=== PATIENT | male | born 1995 | race Caucasian/White ===

== ENCOUNTER 2020-10-17 14:22 | Emergency (ER) | payer MEDICAID, SELFPAY ==
[2020-10-17 15:17] VITALS: BP 156/93; PULSE 78; RESP 16; TEMP 36.4; O2SAT 97; BMI 43.3
--- NOTE | 2020-10-17 17:52 | ED_ITS ---
HPI - General Adult General Chief complaint: Allergic Reaction Stated complaint: ALLERGY REACTION Time Seen by Provider: 10/17/20 17:36 Source: patient Mode of arrival: ambulatory Limitations: no limitations History of Present Illness HPI narrative: Patient presents to the ED for painful rash on left upper extremity. Patient states thinks this caused by Biofreeze gel. Patient denies any rash elsewhere, chest pain, shortness of breath, or swelling of lips. Patient denies any fever, chills, or shortness of breath. Related Data Previous Rx's Medication Instructions Recorded naproxen 500 mg PO BID PRN #20 tab 10/17/20 valacyclovir [Valtrex] 1,000 mg PO TID #21 tab 10/17/20 Allergies Allergy/AdvReac Type Severity Reaction Status Date / Time Penicillins [PENICILLINS] Allergy Intermediate RASH Verified 10/17/20 17:27 amoxicillin [AMOXICILLIN] Allergy Unknown HIVES Verified 10/17/20 17:27 Review of Systems Review of Systems: Yes all other systems are reviewed and are negative Constitutional: Constitutional: Reports as per HPI and Reports no additional constitutional complaints Eyes: Eyes: Reports as per HPI and Reports no additional eye complaints ENT: Reports system reviewed and no additional complaints, except as documented and Reports as per HPI Cardiovascular: Cardiovascular: Reports as per HPI and Reports no additional cardiovascular complaints Respiratory: Respiratory: Reports as per HPI and Reports no additional respiratory complaints Gastrointestinal: Gastrointestinal: Reports as per HPI and Reports no additional gastrointestinal complaints Genitourinary: Genitourinary: Reports no additional male genitourinary compl aints and Reports as per HPI Musculoskeletal: Musculoskeletal: Reports no additional musculoskeletal complaints and Reports as per HPI Comments: Left upper extremity vesicular rash. Neurologic: Reports system reviewed and no additional complaints, except as documented and Reports as per HPI Psychiatric: Psychiatric: Reports no additional psychiatric complaints and Reports as per HPI [facility] Social History Social History Advance Directives: No Advance Directives Information Provided: No Physical Exam Vital Signs: Vital Signs: Last Vital Signs Temp 97.6 F 10/17/20 15:17 Pulse 78 10/17/20 15:17 Resp 16 10/17/20 15:17 BP 156/93 H 10/17/20 15:17 Pulse Ox 97 10/17/20 15:17 Body Mass Index 43.3 Const: General: cooperative, healthy appearing, comfortable, no acute distress, well developed, alert, awake and Physically active Orientation/consciousness: patient oriented x3 HENMT: Head: Yes normal to inspection and Yes No palpable skull fracture present Eyes: General: appearance normal, both eyes and all related structures Neck: Neck: Yes normal visual inspection, Yes full ROM, Yes no lymphadenopathy, Yes no meningeal signs, Yes trachea midline, Yes supple and No tender Chest: Chest palpation & inspection: normal inspection of the chest and normal palpation of entire chest wall Resp: Effort & Inspection: normal respiratory effort and able to speak in complete sentences Cardio: Jugular venous distension: no JVD Heart sounds: S1 normal heart sound present and S2 normal heart sound present GI: Inspection: Yes normal to inspection and No abdominal wall ecchymosis Palpation (GI): Soft to palpation, not firm, nontender, no guarding and not rigid : General: No CVA tenderness Back/Spine/Pelvis: Back: no CVA tenderness, No CVA tenderness and No back tenderness Skin: General skin exam: no rashes or lesions noted and elasticity normal Neuro: General: patient oriented x3, gait normal, no meningeal signs and CN's II-XI intact bilaterally Cranial nerves: Yes CN's II-XII intact bilaterally Extrem: Other: Left upper extremity: Positive for vesicular rash on hands palm and volar and on forearm. General: Yes normal to inspection and Yes full ROM Psych: Appearance: grossly normal, well kempt and not disheveled Course Course Course Narrative: Rash does not seem contact dermatitis or Uticaria. Rash appears some kind of vesicular possibly HSV/shingles. Dr. Zheng also evaluated patient and recommends HSV culture and discharge Valtrex. Reevaluation(s) Reevaluation #1: Patient discharged with Valtrex. Patient informed to follow-up PCP Medical Decision Making [facility] Narrative Medical decision making narrative: Rash Discharge Plan Discharge Clinical Impression: Vesicular eruption of palms and soles, Vesicular eruption of skin Patient Disposition: Home, Self-Care Instructions: Acute Rash (ED) Additional Instructions: Return to the ED for worsening of rash, swelling of lips, chest pain, shortness of breath, developed a rash on face, eye pain, blurry vision, or any other concerning symptoms. HSV Swab was sent. Prescriptions: New valacyclovir [Valtrex] 1 gram tablet 1,000 mg PO TID Qty: 21 RF: 0 naproxen 500 mg tablet 500 mg PO BID PRN (Reason: pain) Qty: 20 RF: 0 Referrals: [facility] [Primary Care Provider] - 2 days (Fascicular rash on left upper extremity. HSV culture pending) Stand Alone Forms: Work/School Release Interventions: ED Discharge Assessment Last Done: 10/17/20 18:23 Discharge Date/Time: 10/17/20 18:25 Print Language: Divehi
== END 2020-10-17 18:25 | disposition home or self-care (01) ==
PROVIDERS: Physician Assistant; Emergency Provider Internal Medicine
DX: R23.8 Other skin changes (principal)
CPT/HCPCS: 87255; 99283; 99284

== ENCOUNTER 2020-10-31 17:27 | Emergency (ER) | payer OTHER, MEDICAID, SELFPAY ==
--- NOTE | ~2020-10-31 | XR_ITS ---
EXAMINATION: LEFT HAND, LEFT ELBOW, LEFT SHOULDER AND CERVICAL SPINE. CLINICAL INFORMATION: Lifting injury resulting in shoulder pain, hand pain elbow pain COMPARISON: And neck pain. TECHNIQUE: Left hand 3 views. Left elbow 3 views. Left shoulder 4 views. Cervical spine 5 views. FINDINGS: Left elbow: There is no visible acute fracture, dislocation or subluxation. No joint effusion seen. The soft tissues are normal. Left shoulder: There is no visible acute fracture, dislocation or soft tissue abnormality. Cervical spine: There is mild straightening of cervical lordosis. The vertebral heights, alignment and disc heights are normal. No visible acute fracture, dislocation or subluxation seen. The prevertebral soft tissues are normal. Left hand: There is no visible acute fracture, dislocation or subluxation. The soft tissues are normal. XR/XR cervical spine 2V IMPRESSION: Unremarkable left elbow and left shoulder exam. Unremarkable left hand exam. Reversal of cervical lordosis likely spasm. No visible acute fracture.
--- NOTE | ~2020-10-31 | XR_ITS ---
EXAMINATION: LEFT HAND, LEFT ELBOW, LEFT SHOULDER AND CERVICAL SPINE. CLINICAL INFORMATION: Lifting injury resulting in shoulder pain, hand pain elbow pain COMPARISON: And neck pain. TECHNIQUE: Left hand 3 views. Left elbow 3 views. Left shoulder 4 views. Cervical spine 5 views. FINDINGS: Left elbow: There is no visible acute fracture, dislocation or subluxation. No joint effusion seen. The soft tissues are normal. Left shoulder: There is no visible acute fracture, dislocation or soft tissue abnormality. Cervical spine: There is mild straightening of cervical lordosis. The vertebral heights, alignment and disc heights are normal. No visible acute fracture, dislocation or subluxation seen. The prevertebral soft tissues are normal. Left hand: There is no visible acute fracture, dislocation or subluxation. The soft tissues are normal. XR/XR shoulder LT min 2V IMPRESSION: Unremarkable left elbow and left shoulder exam. Unremarkable left hand exam. Reversal of cervical lordosis likely spasm. No visible acute fracture.
--- NOTE | ~2020-10-31 | XR_ITS ---
EXAMINATION: LEFT HAND, LEFT ELBOW, LEFT SHOULDER AND CERVICAL SPINE. CLINICAL INFORMATION: Lifting injury resulting in shoulder pain, hand pain elbow pain COMPARISON: And neck pain. TECHNIQUE: Left hand 3 views. Left elbow 3 views. Left shoulder 4 views. Cervical spine 5 views. FINDINGS: Left elbow: There is no visible acute fracture, dislocation or subluxation. No joint effusion seen. The soft tissues are normal. Left shoulder: There is no visible acute fracture, dislocation or soft tissue abnormality. Cervical spine: There is mild straightening of cervical lordosis. The vertebral heights, alignment and disc heights are normal. No visible acute fracture, dislocation or subluxation seen. The prevertebral soft tissues are normal. Left hand: There is no visible acute fracture, dislocation or subluxation. The soft tissues are normal. XR/XR elbow LT 2V IMPRESSION: Unremarkable left elbow and left shoulder exam. Unremarkable left hand exam. Reversal of cervical lordosis likely spasm. No visible acute fracture.
--- NOTE | ~2020-10-31 | XR_ITS ---
EXAMINATION: LEFT HAND, LEFT ELBOW, LEFT SHOULDER AND CERVICAL SPINE. CLINICAL INFORMATION: Lifting injury resulting in shoulder pain, hand pain elbow pain COMPARISON: And neck pain. TECHNIQUE: Left hand 3 views. Left elbow 3 views. Left shoulder 4 views. Cervical spine 5 views. FINDINGS: Left elbow: There is no visible acute fracture, dislocation or subluxation. No joint effusion seen. The soft tissues are normal. Left shoulder: There is no visible acute fracture, dislocation or soft tissue abnormality. Cervical spine: There is mild straightening of cervical lordosis. The vertebral heights, alignment and disc heights are normal. No visible acute fracture, dislocation or subluxation seen. The prevertebral soft tissues are normal. Left hand: There is no visible acute fracture, dislocation or subluxation. The soft tissues are normal. XR/XR hand LT 2V IMPRESSION: Unremarkable left elbow and left shoulder exam. Unremarkable left hand exam. Reversal of cervical lordosis likely spasm. No visible acute fracture.
[2020-10-31 17:35] VITALS: BP 142/97; PULSE 80; RESP 18; TEMP 37.1; O2SAT 97; BMI 42.5
--- NOTE | 2020-10-31 18:48 | ED.EXTPRO ---
HPI - Extremity Problem General Chief complaint: Extremity Injury, Upper Stated complaint: arm pain Time Seen by Provider: 10/31/20 20:34 Source: patient Mode of arrival: ambulatory Limitations: no limitations History of Present Illness HPI Narrative: 24-year-old male presents with injuries to the left upper extremity that occurred 2 weeks ago. States that he is having a difficult time lifting his arm, and we start to work that the pain starts in his hand elbow and shoulder. He does not describe loss of sensation or strength but states that the pain is so severe that he cannot work. MD Complaint: extremity pain Onset (ago): week(s) (To) Pain Consistency: intermittent Location: left and upper extremity Severity scale (1-10): 8 Quality: aching Relieving factors: rest Exacerbating factors: range of motion and exertion Associated symptoms: denies other symptoms Related Data Previous Rx's Medication Instructions Recorded naproxen 500 mg PO BID PRN #20 tab 10/17/20 valacyclovir [Valtrex] 1,000 mg PO TID #21 tab 10/17/20 cyclobenzaprine 10 mg PO TID PRN #14 tab 10/31/20 Allergies Allergy/AdvReac Type Severity Reaction Status Date / Time Penicillins [PENICILLINS] Allergy Intermediate RASH Verified 10/17/20 17:27 amoxicillin [AMOXICILLIN] Allergy Unknown HIVES Verified 10/17/20 17:27 Review of Systems Review of Systems: Constitutional: No Fever, No Chills ENT/Mouth: No Ear Pain, No Hoarseness, No sore throat Eyes: No Eye Pain, No Swelling, No Redness, No Foreign Body Cardiovascular: No Chest Pain, No SOB Respiratory: No Cough, No Dyspnea Gastrointestinal: No Nausea, No Vomiting, No Diarrhea, No abdominal Pain Genitourinary: No Dysuria, No Hematuria Musculoskeletal: positive left arm pain, No Myalgias, No Joint Swelling Skin: No Skin lacerations, No rash Neuro: No Weakness, No Numbness, No Paresthesias, No Loss of Consciousness, No Dizziness, No Headache Psych: No Anxiety/Panic, No Depression Heme/Lymph: no easy bruising, no Lymphadenopathy Endocrine: No Polyuria, No Polydipsia Yes all other systems are reviewed and are negative [facility] Past Medical History Attestation statement: The following information was validated with the patient. Source: old records reviewed Social History Social History Advance Directives: No Advance Directives Information Provided: Yes Physical Exam Vital Signs: Vital Signs: Last Vital Signs Temp 98.7 F 10/31/20 17:35 Pulse 75 10/31/20 19:55 Resp 17 10/31/20 19:55 BP 132/72 10/31/20 19:55 Pulse Ox 98 10/31/20 19:55 Body Mass Index 42.5 Appearance: Alert. Oriented X3. No acute distress. Eyes: Pupils equal, round and reactive to light. ENT: Pharynx normal. Neck: Normal inspection. Neck supple. CVS: Normal heart rate and rhythm. Pulses normal. Respiratory: No respiratory distress. Breath sounds normal. Abdomen: Soft and nontender. Skin: Skin warm and dry. Normal skin color. Normal skin turgor. Extremities: Full range of motion to all extremities, no crepitus noted, tenderness noted to the left acromion process over to the left scapula. No vertebral tenderness, no vertebral step-offs. Neuro: No motor deficit. No sensory deficit. Course Course Course Narrative: 24-year-old male presents with symptoms sustained from an injury while he was at work 2 weeks ago. States that he was treated for left arm injury after a lifting accident. States that when he moves his arm it exacerbates the pain and he is unable to work. The pain starts in his hand radiates up to his elbow and then to his shoulder. Physical exam is normal, he does have a decreased range of motion with left shoulder abduction, however he was able to walk in to this department without any difficulty and was using his phone with his left hand prior to my assessment. Will order x-rays of cervical spine, shoulder, elbow and wrist. He stated that when he had his initial injury that there was no imaging taken. X-rays are negative for acute findings requiring emergent intervention. There is some suggestion of muscle spasms, will give patient cyclobenzaprine. Was strongly advised to follow-up with [facility] as well as orthopedics. MDM - Extremity (Nontraumatic) MDM Narrative Medical decision making narrative: Fracture, dislocation, musculoskeletal strain Medical Records Attestation: I reviewed the patient's medical records. Imaging Data Cervical spine, left shoulder, left elbow, left hand x-rays: Attestation: I personally reviewed and interpreted this imaging study as follows: Radiologist's impression: IMPRESSION: Unremarkable left elbow and left shoulder exam. Unremarkable left hand exam. Reversal of cervical lordosis likely spasm. No visible acute fracture. Discharge Plan Discharge Clinical Impression: Arm pain Qualifiers: Laterality: left Qualified Code(s): M79.602 - Pain in left arm Patient Disposition: Home, Self-Care Instructions: Arm Pain (ED) Additional Instructions: You were evaluated for arm pain after lifting injury at work. Please follow up with [facility] in 3 days. X-rays of the cervical spine, left shoulder, left elbow, and left hand are negative for fractures or dislocation. You do have some muscle spasms. I prescribed cyclobenzaprine, which is a muscle relaxer. Do not drive or operate machinery while taking this medication as this medication may delay reaction time, increased risk for falls, and cause drowsiness. If pain persists you must follow-up with orthopedics for further evaluation. Thank you for choosing this emergency department for evaluation. Please follow-up with primary care physician as needed. Return to the emergency department for any new, concerning, or worsening symptoms. Prescriptions: New cyclobenzaprine 10 mg tablet 10 mg PO TID PRN (Reason: muscle spasm) Qty: 14 RF: 0 No Action valacyclovir [Valtrex] 1 gram tablet 1,000 mg PO TID Qty: 21 RF: 0 naproxen 500 mg tablet 500 mg PO BID PRN (Reason: pain) Qty: 20 RF: 0 Referrals: [facility] [Provider Group] - 2 days (Please follow-up for work related injury with left arm.) Timbo Bustos MD [Physician] - 2 days (Left arm pain after work-related injury) Interventions: ED Discharge Assessment Last Done: 10/31/20 21:12 Discharge Date/Time: 10/31/20 21:13
[2020-10-31] MEDS: Cyclobenzaprine HCl 10 MG TABLET PO (19:53)
[2020-10-31 19:55] VITALS: BP 132/72; PULSE 75; RESP 17; O2SAT 98
== END 2020-10-31 21:13 | disposition home or self-care (01) ==
PROVIDERS: Emergency Provider Internal Medicine
DX: M79.602 Pain in left arm (principal)
CPT/HCPCS: 72040; 73030; 73070; 73120; 99283; 99284

== ENCOUNTER 2021-01-29 17:34 | Emergency (ER) | payer MEDICAID, SELFPAY ==
--- NOTE | ~2021-01-29 | XR_ITS ---
EXAMINATION: PORTABLE CHEST 1 VIEW CLINICAL INFORMATION: productive cough, fever . COMPARISON: 08/11/2019. TECHNIQUE: Portable frontal view of the chest was obtained. FINDINGS: The lungs are well expanded. No focal infiltrate, effusion, edema, or pneumothorax. Cardiac and mediastinal silhouettes are within normal limits for technique. No acute bony abnormality seen. XR/XR chest 1V IMPRESSION: No evidence of acute disease.
[2021-01-29 18:00] VITALS: BP 134/75; PULSE 95; RESP 16; TEMP 37; O2SAT 97; BMI 41.0
--- NOTE | 2021-01-29 19:02 | ED.URI ---
HPI - URI/Sore Throat General Chief Complaint: Upper Respiratory Symptoms Stated Complaint: covid symptoms Time Seen by Provider: 01/29/21 19:02 Source: patient Mode of arrival: ambulatory Limitations: no limitations History of Present Illness HPI Narrative: 25 y/o male with no significant medical history presents to the ER with 4 days of productive cough, nasal congestion, and headaches. He is fully vaccinated against COVID-19. He reports cough is improved but he is still bringing up some green phlegm and blowing green mucus out of his nose. His sinuses feels clogged. Subjective fevers at home, no chills. No N/V/D. No known sick contacts. MD elicited complaint: cough, nasal congestion and other (headache) Onset (ago): day(s) (4) Consistency: constant Severity: moderate Description of mucous: green Able to tolerate fluids by mouth: Yes Exacerbating factors: nothing Relieving factors: nothing Associated symptoms: fever, headache, nasal congestion and cough Treatments prior to arrival: none Related Data Previous Rx's Medication Instructions Recorded naproxen 500 mg tablet 500 mg PO BID PRN #20 tab 10/17/20 valacyclovir 1 gram tablet 1,000 mg PO TID #21 tab 10/17/20 (Valtrex) cyclobenzaprine 10 mg tablet 10 mg PO TID PRN #14 tab 10/31/20 azithromycin 250 mg tablet See Rx Instructions .ROUTE 01/29/21 (Zithromax Z-Chad) .COMPLEX #6 tab Allergies Allergy/AdvReac Type Severity Reaction Status Date / Time Penicillins [PENICILLINS] Allergy Intermediate RASH Verified 10/17/20 17:27 amoxicillin [AMOXICILLIN] Allergy Unknown HIVES Verified 10/17/20 17:27 Review of Systems Review of Systems: Constitutional: + Fever, No Chills ENT/Mouth: No sore throat, + Rhinorrhea, No Swallowing Difficulty Cardiovascular: No Chest Pain, No SOB Respiratory: + Cough, + Sputum, No wheezing or dyspnea Gastrointestinal: No Nausea, No Vomiting, No Diarrhea, No abdominal Pain Genitourinary: No Dysuria, No Urinary Frequency, No Hematuria Musculoskeletal: No joint pain, No Myalgias Skin: No Skin Lesions, No rash Neuro: No Weakness, No Numbness, No Dizziness, + Headache Psych: No Anxiety/Panic, No Depression Heme/Lymph: No Bruising, No Lymphadenopathy PMFSH Social History Social History Advance Directives: No Advance Directives Information Provided: No Physical Exam Vital Signs: Vital Signs: Last Vital Signs Temp 98.6 F 01/29/21 18:00 Pulse 95 01/29/21 18:00 Resp 16 01/29/21 18:00 BP 134/75 01/29/21 18:00 Pulse Ox 97 01/29/21 18:00 Body Mass Index 41.0 Appearance: Alert. Oriented X3. No acute distress. Eyes: Pupils equal, round and reactive to light. ENT: Pharynx normal. Nasal turbinates with erythema and clear discharge Neck: Normal inspection. Neck supple. CVS: Normal heart rate and rhythm. Pulses normal. Respiratory: No respiratory distress. Breath sounds normal. Congested cough Skin: Skin warm and dry. Normal skin color. Normal skin turgor. No rashes. Extremities: No lower extremity edema. Neuro: Oriented X 3. Nonfocal Course Course Course Narrative: 25 y/o male presenting with productive cough, headache and nasal congestion. VS stable. Appears non-toxic. CXR and COVID are negative. Will treat for acute bronchitis. Stable for d/c home with supportive care and outpatient follow up. MDM - URI/Sore Throat Lab Data Labs: Lab Results 01/29/21 01/29/21 Range/Units 18:08 19:33 COVID-19 ([facility]) Cancelled Negative COVID-19 Clin Com Cancelled See Note Critical Care Time Critical Care Time Critical Care Time: No Discharge Plan Discharge Clinical Impression: Bronchitis Patient Disposition: Home, Self-Care Instructions: Acute Bronchitis (ED) Additional Instructions: You were negative for COVID Your chest x-ray was clear Take the prescribed antibiotic as directed You were found to be COVID-19 POSITIVE today. Rest. Drink plenty of fluids. Do not go out in public for the next 10 days. Take over the counter cold/flu medications as needed for your symptoms. Take Tylenol and/or Motrin as needed for fevers and body aches. Follow up with your doctor this week. If you develop new or worsening symptoms call 911 or come back to the ER for further evaluation. Prescriptions: New azithromycin [Zithromax Z-Chad] 250 mg tablet See Rx Instructions .ROUTE .COMPLEX Qty: 6 RF: 0 No Action valacyclovir [Valtrex] 1 gram tablet 1,000 mg PO TID Qty: 21 RF: 0 naproxen 500 mg tablet 500 mg PO BID PRN (Reason: pain) Qty: 20 RF: 0 cyclobenzaprine 10 mg tablet 10 mg PO TID PRN (Reason: muscle spasm) Qty: 14 RF: 0 Stand Alone Forms: Work/School Release Interventions: ED Discharge Assessment Last Done: 01/29/21 20:13 Discharge Date/Time: 01/29/21 20:13
[2021-01-29 19:52] LABS: COVID-19 Test Negative (Negative); IDNOW Serial# 55D5AD1C
== END 2021-01-29 20:13 | disposition home or self-care (01) ==
PROVIDERS: Emergency Provider Internal Medicine
DX: J20.9 Acute bronchitis, unspecified (principal); Z20.822 Contact with and (suspected) exposure to COVID-19
CPT/HCPCS: 36415; 71045; 87635; 99283

== ENCOUNTER 2021-03-30 20:50 | Emergency (ER) | payer OTHER, MEDICAID, SELFPAY ==
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
[2021-03-30 21:08] VITALS: BP 140/96; PULSE 87; RESP 20; TEMP 36.8; O2SAT 98; BMI 46.0
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
[2021-03-30] MEDS: Ibuprofen 600 MG TABLET PO (22:41)
[2021-03-30] MEDS: Cyclobenzaprine HCl 10 MG TABLET PO (22:41)
== END 2021-03-30 23:32 | disposition home or self-care (01) ==
PROVIDERS: Emergency Provider Internal Medicine
DX: S16.1XXA Strain of muscle, fascia and tendon at neck level, initial encounter (principal); V43.62XA Car passenger injured in collision with other type car in traffic accident, initial encounter; Y93.9 Activity, unspecified; Y92.410 Unspecified street and highway as the place of occurrence of the external cause; Y99.9 Unspecified external cause status
CPT/HCPCS: 72040; 99283; 99284

== ENCOUNTER 2021-06-12 13:22 | Outpatient (REF) | payer MEDICAID, SELFPAY ==
[2021-06-12 14:22] LABS: COVID-19 Test Positive (Negative)
== END 2021-06-12 13:23 | disposition home or self-care (01) ==
LOC: HO.LAB 13:22
PROVIDERS: Visit Provider Internal Medicine
DX: Z20.822 Contact with and (suspected) exposure to COVID-19 (principal)
CPT/HCPCS: 87635; C9803

== ENCOUNTER 2021-06-21 13:36 | Outpatient (REF) | payer MEDICAID, SELFPAY ==
[2021-06-21 14:09] LABS: Binax Internal Control QC Valid; Binax Now Covid-19 Ag Negative (Negative)
== END 2021-06-21 13:37 | disposition home or self-care (01) ==
LOC: HO.LAB 13:36
PROVIDERS: Visit Provider Internal Medicine
DX: Z20.822 Contact with and (suspected) exposure to COVID-19 (principal)
CPT/HCPCS: C9803

== ENCOUNTER 2021-11-14 14:38 | Outpatient (REF) | payer MEDICAID, SELFPAY ==
--- NOTE | ~2021-11-14 | MM_ITS ---
EXAMINATION: MM DIAGNOSTIC DIGITAL BREAST TOMOSYNTHESIS, BILATERAL US DIAGNOSTIC ULTRASOUND BREAST, BILATERAL CLINICAL INFORMATION: 25-year-old male with bilateral retroareolar pain greater on left approximately 6 months. No prior breast imaging. COMPARISON: None (current study represents initial baseline exam). TECHNIQUE: Digital breast tomosynthesis is performed in both the craniocaudal and mediolateral oblique views along with computer-aided detection (CAD). Synthesized 2D images are generated from the tomosynthesis. Additional right MLO view is provided. Ultrasound bilateral breasts is performed retroareolar and periareolar regions. Grayscale imaging and color Doppler are performed without and with harmonics. FINDINGS: There are scattered areas of fibroglandular density (ACR BI-RADS breast composition Category b). There is mild to moderate bilateral gynecomastia pattern. There is no underlying mass or architectural abnormality or abnormal calcifications. The axilla are unremarkable. Incidental low right axillary tail node present. There is no skin thickening or coarsening of the stromal markings. Ultrasound demonstrates the bilateral retroareolar gynecomastia. There is no cystic or solid mass or architectural abnormality. No skin thickening or edema tracking in soft tissue planes. Results are discussed with the patient at time of visit. MM/MM tomosynthesis diagnostic BI IMPRESSION: -Bilateral mild to moderate retroareolar gynecomastia. ASSESSMENT: BI-RADS 2: Benign RECOMMENDATION: Patient should be managed based on the clinical impression.
== END 2021-11-14 14:39 | disposition home or self-care (01) ==
LOC: HO.MAMMO 14:38
PROVIDERS: PCP Nurse Practitioner Primary Care; Visit Provider Nurse Practitioner Primary Care
DX: N64.4 Mastodynia (principal)
CPT/HCPCS: 76642; 77062; 77066

== ENCOUNTER 2022-07-03 10:55 | Outpatient (REF) | payer MEDICAID, SELFPAY ==
[2022-07-03 11:51] LABS: COVID-19 Test Negative (Negative); IDNOW Serial# 16C4AD1C
== END 2022-07-03 10:56 | disposition home or self-care (01) ==
LOC: HO.LAB 10:55
PROVIDERS: Visit Provider Internal Medicine
DX: Z20.822 Contact with and (suspected) exposure to COVID-19 (principal)
CPT/HCPCS: 87635; C9803

== ENCOUNTER 2022-07-19 14:49 | Outpatient (REF) | payer MEDICAID, SELFPAY ==
--- NOTE | ~2022-07-19 | XR_ITS ---
EXAMINATION: XR THORACOLUMBAR SPINE CLINICAL INFORMATION: Chronic shoulder pain COMPARISON: None TECHNIQUE: 2 views of the thoracic spine FINDINGS: The vertebral alignment is normal. No intrinsic bony abnormality. The disc heights and neural foramina are well maintained. The endplates and posterior elements are normal. No fracture or subluxation. The surrounding prevertebral soft tissues are unremarkable. XR/XR thoracic spine 2V IMPRESSION: No compression fractures or subluxations are identified. The disc spaces are preserved. No endplate changes are seen. The prevertebral soft tissues are normal. The foramina are patent.
--- NOTE | ~2022-07-19 | XR_ITS ---
EXAMINATION: XR shoulder RT min 2V, XR shoulder LT min 2V CLINICAL INFORMATION: Reason for Exam SHOULDER PAIN COMPARISON: 10/31/2020 TECHNIQUE: 3 views of the bilateral shoulders XR/XR shoulder RT min 2V FINDINGS/IMPRESSION: * No acute fracture or dislocation. * Joint spaces are maintained without significant degenerative change. * No soft tissue abnormality.
--- NOTE | ~2022-07-19 | XR_ITS ---
EXAMINATION: XR shoulder RT min 2V, XR shoulder LT min 2V CLINICAL INFORMATION: Reason for Exam SHOULDER PAIN COMPARISON: 10/31/2020 TECHNIQUE: 3 views of the bilateral shoulders XR/XR shoulder LT min 2V FINDINGS/IMPRESSION: * No acute fracture or dislocation. * Joint spaces are maintained without significant degenerative change. * No soft tissue abnormality.
--- NOTE | ~2022-07-19 | XR_ITS ---
EXAMINATION: XR cervical spine 5V CLINICAL INFORMATION: Pain COMPARISON: None TECHNIQUE: 5 views of the cervical spine were obtained. FINDINGS: The cervical spine is visualized to the level of C6 on the lateral view. Vertebral body alignment is maintained. Vertebral body heights are maintained. Lateral masses of C1 are well aligned on C2. Visualized portion of the dens is intact. Intervertebral disc spaces are preserved. Bilateral neural foramina are patent. No prevertebral soft tissue swelling. XR/XR cervical spine 5V IMPRESSION: No significant spondylolisthesis.
== END 2022-07-19 14:50 | disposition home or self-care (01) ==
LOC: HO.XRAY 14:49
PROVIDERS: PCP Nurse Practitioner Primary Care; Visit Provider Registered Nurse
DX: M54.9 Dorsalgia, unspecified (principal); M25.511 Pain in right shoulder; M25.512 Pain in left shoulder; G89.29 Other chronic pain
CPT/HCPCS: 72050; 72070; 73030

== ENCOUNTER 2023-02-14 14:12 | Outpatient (AMB) | payer MEDICAID, SELFPAY ==
--- NOTE | 2023-02-14 14:16 | MHC.OFFVIS ---
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 States both are as bad. States his pain started in his teen years. States he didn't think much of it at the time. He was experiencing tightness, pinching sensation with lifting. States his pain has worsen after working at [employer] for 1.5 months. He is also having numbness and tingling as well. 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 He reports the bilateral shoulders are equal in pain. He was seen in Family medicine on 12/12/2022 with a complaint of stabbing bilateral shoulder pain, which has been ongoing for a year, since 2021. In the office today the patient reports his pain has been present since his teen years, but he did not think much of it at the time. He claims to have experienced tightness and a pinching sensation when lifting. He reports his pain increases after working for 1.5 months. He confirms numbness and tingling as well. The patient reports he experiences a pain and pinching sensation with over head reaching or lifting. Experiences weakness with over head lifting. When his arms are above his head for longer than a few moments he experiences bilateral upper extremity numbness, tingling, and a cold sensation. Patient works at [employer]. 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 External rotation to 45 degrees. Positive cross-body reach. 3/5 strength with empty can. Negative drop arm. He reports intermittent numbness and tingling in the bilateral upper extremities. Assessment & Plan Assessment & Plan (1) Myofascial pain dysfunction syndrome: Code(s): M79.18 - Myalgia, other site Plan Mr. Vernon is a 27-year-old right hand dominant male who presents in the office today, as a new patient, for an evaluation of bilateral shoulder pain. He reports the bilateral shoulders are equal in pain. He was seen in Family medicine on 12/12/2022 with a complaint of stabbing bilateral shoulder pain, which has been ongoing for a year, since 2021. In the office today the patient reports his pain has been present since his teen years, but he did not think much of it at the time. He claims to have experienced tightness and a pinching sensation when lifting. He reports his pain increases after working for 1.5 months. He confirms numbness and tingling as well. The patient reports he experiences a pain and pinching sensation with over head reaching or lifting. Experiences weakness with over head lifting. When his arms are above his head for longer than a few moments he experiences bilateral upper extremity numbness, tingling, and a cold sensation. Patient works at [employer]. The patient will be referred to physiatry for further evaluation and treatment of myofasical dysfunction verses thoracic outlet syndrome. I would like further input on if an EMG would be of benefit to the patient. Follow up will be with physiatry, or sooner if needed. X-rays of the bilateral shoulder, obtained on 07/19/2022, revealed: 1. No acute fracture or dislocation. 2. Joint spaces are maintained without significant degenerative change. 3. No soft tissue abnormality. Patient Instructions: Scribed for Mary Ellen Ramirez PA-C by Guerda Chambers ophthalmic medical assistant, on 02/14/2023 at 2:13 pm, EST. Coding Level of Care Code New Pt Level 4 (33317) Diagnoses Myofascial pain dysfunction syndrome M79.18
== END 2023-02-14 14:39 | disposition home or self-care (01) ==
PROVIDERS: PCP Nurse Practitioner Primary Care; Visit Provider Physician Assistant
DX: M79.18 Myalgia, other site (principal)
CPT/HCPCS: 99204

== ENCOUNTER → 2023-02-14 14:12 | Outpatient (BNVA) | payer MEDICAID, SELFPAY | PROVIDERS: PCP Nurse Practitioner Primary Care; Visit Provider Physician Assistant | DX: M79.18 Myalgia, other site (principal); M25.511 Pain in right shoulder; M25.512 Pain in left shoulder | CPT/HCPCS: 99212 ==

== ENCOUNTER 2023-02-26 08:50 | Outpatient (AMB) | payer MEDICAID, SELFPAY ==
--- NOTE | 2023-02-26 08:59 | A.OFFVIS_ITS ---
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 Last seen with Wesley Hyde on 02/14/23 . He reports the bilateral shoulders are equal in pain. States he is experiencing stabbing pains in bilateral shoulder, tightness and a pinching sensation when lifting which has been ongoing for a year, since 2021. He reports his pain increases after working for 1.5 months at [employer]. He confirms numbness and tingling as well. No EMG done. Allergies Penicillins [PENICILLINS] Allergy (Intermediate, Verified 02/26/23 09:05) RASH amoxicillin [AMOXICILLIN] Allergy (Unknown, Verified 02/26/23 09:05) HIVES Medication List - Last Reconciled 02/26/23 by Lashawn Dunn MD ibuprofen 600 mg PO Q6H PRN naproxen 500 mg PO BID PRN valacyclovir (Valtrex) 1,000 mg PO TID HPI HPI Comments History of Present Illness Details Patient recently seen by Orthopedics for shoulder pain. Thought to be myofascial in origin. Referred to physiatry. About a year, associated with work, used to work for [employer]. He is unemployed right now due to his arms. Says pain is shoulders, but points from back of shoulder blade and goes to front and also goes to side. Says he can't sleep on his side. Also lateral neck pain. Does not radiate to his hands. Used to have numbness on tips of fingers. Went to therapy 2-3 months ago, and th e numbness resolved after. 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 ROM still full. Treatment done so far: NSAIDs therapy - he says he does the exercises taught somewhat Xray was normal on shoulders. 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 Patient was appropriately conversant and oriented. Good historian. MSK: Inspection reveals appropriate head and neck positioning. There is some tightness on right upper trapezius and left rhomboid speech Cervical ROM was full. Spurling's sign negative. Bilateral shoulder, elbow and wrist ROM WNL. No ligamentous laxity or crepitance. No increased effusion. Negative Ballard sign. Negative empty can sign. Negative speed's test. Negative drop sign. Mildly positive carpal compression on right. No hand intrinsic weakness. No atrophy Strength is 5/5 in all muscle groups tested. No increased tone noted. Neurological: Mood appears normal, good affect, and appropriate for the circumstances. Neurologic examination of the upper and lower extremities was nonfocal with intact sensation, muscle stretch reflexes and without focal motor deficits. Burrell?s negative bilaterally. Gait is non-antalgic without loss of balance. Results Reviewed Results Reviewed: I independently reviewed the results of the following: Shoulder x-rays normal XAMINATION: XR shoulder RT min 2V, XR shoulder LT min 2V CLINICAL INFORMATION: Reason for Exam SHOULDER PAIN COMPARISON: 10/31/2020 TECHNIQUE: 3 views of the bilateral shoulders XR/XR shoulder RT min 2V FINDINGS/IMPRESSION: * No acute fracture or dislocation. * Joint spaces are maintained without significant degenerative change. * No soft tissue abnormality. I reviewed records from the following: Orthopedic Assessment & Plan Assessment & Plan (1) Myofascial pain dysfunction syndrome: Code(s): M79.18 - Myalgia, other site Plan: I agree with orthopedics that presentation suggest myofascial pain, without signs of cervical radiculopathy/myelopathy or shoulder joint/RTC issues. Discussed diagnosis with the patient. Suggested to continue daily exercises as taught by PT. We could trial trigger point injections for more immediate pain relief but nursing home resolution rely on him being consistent with his stretching and exercises. Patient will think about this further. (2) Bilateral hand numbness: Code(s): R20.0 - Anesthesia of skin Plan: He had numbness in the past which resolved with physical therapy. This again suggests symptoms are myofascial rather than a nerve issue. We could still do an EMG to rule out cervical radiculopathy versus Carpal Tunnel Syndrome. Patient would like to proceed. EMG ordered. This will be scheduled. Plan Assessment and plan discussed with patient, and patient was agreeable. All questions were answered thoroughly. Lashawn Dunn MD, ABBY Board Certified, [place] [employer] and [employer] (ABPMR) Board Certified, [place] [employer] Electrodiagnostic [employer] (ABEM) Orders: Orders NE electromyogram (EMG) Today R20.0 - Anesthesia of skin NE nerve conduction velocity Today R20.0 - Anesthesia of skin Coding Level of Care Code New Pt Level 4 (95209) Diagnoses Myofascial pain dysfunction syndrome M79.18 Bilateral hand numbness R20.0
== END 2023-02-26 09:19 | disposition home or self-care (01) ==
PROVIDERS: PCP Nurse Practitioner Primary Care; Visit Provider Physical Medicine & Rehabilitation
DX: M79.18 Myalgia, other site (principal); R20.0 Anesthesia of skin
CPT/HCPCS: 99204

== ENCOUNTER → 2023-02-26 08:50 | Outpatient (BNVA) | payer MEDICAID, SELFPAY | PROVIDERS: PCP Nurse Practitioner Primary Care; Visit Provider Physical Medicine & Rehabilitation | DX: R20.0 Anesthesia of skin (principal); M79.18 Myalgia, other site | CPT/HCPCS: 99202 ==

== ENCOUNTER 2023-03-20 13:32 | Outpatient (REF) | payer MEDICAID, SELFPAY ==
--- NOTE | 2023-03-20 13:34 | EMG_ITS ---
Chief complaint: Upper back pain, hand numbness Reason for referral: Evaluate for Carpal Tunnel Syndrome Procedure done: Bilateral upper extremities NCS/EMG Precautions and/or limitations: Needle phobia - deferred needle EMG on right side The limb temperature was monitored continuously and remained between 32-36 degrees C during the performance of the NCS. FINDINGS: All motor and sensory nerves tested showed normal latencies, amplitudes and conduction velocities. Concentric needle EMG was performed in selected muscles of the left upper extremity. Study did not reveal signs of electric abnormalities as shown in the table below. Nerve Conduction Studies Anti Sensory Summary Table ?Stim Site NR Onset (ms) Norm Onset (ms) Peak (ms) Norm Peak (ms) O-P Amp (?V) Norm O-P Amp Site1 Site2 Delta-0 (ms) Dist (cm) Carlo (m/s) Norm Carlo (m/s) Left Median Anti Sensory (2nd Digit) Wrist ? 2.3 3.0 <3.6 60.8 >10 Wrist 2nd Digit 2.3 14.0 61 Right Median Anti Sensory (2nd Digit) Wrist ? 2.5 2.9 <3.6 54.0 >10 Wrist 2nd Digit 2.5 14.0 56 Right Radial Anti Sensory (Thumb) Forearm ? 1.6 2.0 <3.1 6.3 Forearm Thumb 1.6 0.0 Left Ulnar Anti Sensory (5th Digit) Wrist ? 3.0 3.5 <3.7 21.2 >15.0 Wrist 5th Digit 3.0 14.0 47 Right Ulnar Anti Sensory (5th Digit) Wrist ? 1.1 2.9 <3.7 37.1 >15.0 Wrist 5th Digit 1.1 14.0 127 Motor Summary Table ?Stim Site NR Onset (ms) Norm Onset (ms) O-P Amp (mV) Norm O-P Amp iAmp (mV) Amp (1st) (%) Site1 Site2 Delta-0 (ms) Dist (cm) Carlo (m/s) Norm Carlo (m/s) Left Median Motor (Abd Poll Brev) Wrist ? 2.8 <3.9 8.9 >4.5 10.6 100.0 Elbow Wrist 4.0 23.5 59 >45 Elbow ? 6.8 8.8 10.5 98.9 Right Median Motor (Abd Poll Brev) Wrist ? 3.0 <3.9 9.2 >4.5 10.9 100.0 Elbow Wrist 4.1 21.0 51 >45 Elbow ? 7.1 8.2 9.8 89.1 Left Ulnar Motor (Abd Dig Minimi) Wrist ? 2.4 <3.0 5.9 >5 6.8 100.0 B Elbow Wrist 3.3 21.0 64 >45 B Elbow ? 5.7 5.1 6.3 86.4 A Elbow B Elbow 1.6 10.0 63 >45 A Elbow ? 7.3 4.7 6.1 79.7 Right Ulnar Motor (Abd Dig Minimi) Wrist ? 2.4 <3.0 5.5 >5 7.2 100.0 B Elbow Wrist 3.5 19.0 54 >45 B Elbow ? 5.9 5.5 7.4 100.0 A Elbow B Elbow 1.1 10.0 91 >45 A Elbow ? 7.0 5.5 7.4 100.0 EMG ?Side Muscle Nerve Root Ins Act Fibs Psw Amp Dur Poly Recrt Int Pat Comment Left 1stDorInt Ulnar C8-T1 Nml Nml Nml Nml Nml 0 Nml Complete Left FlexCarRad Median C6-7 Nml Nml Nml Nml Nml 0 Nml Complete Left Biceps Musculocut C5-6 Nml Nml Nml Nml Nml 0 Nml Complete Left Triceps Radial C6-7-8 Nml Nml Nml Nml Nml 0 Nml Complete Left Deltoid Axillary C5-6 Nml Nml Nml Nml Nml 0 Nml Complete IMPRESSION: 1. This is a normal study. 2. There is no electrodiagnostic evidence for median neuropathy, ulnar neuropathy, brachial plexopathy, or cervical radiculopathy. Thank you for your kind referral. Lashawn Dunn MD, ABBY Board Certified, [place] [employer] and [employer] (ABPMR) Board Certified, [place] Board [employer] Electrodiagnostic [employer] (ABEM) [place] [id number] [facility]
== END 2023-03-20 13:33 | disposition home or self-care (01) ==
LOC: HO.NEURO 13:32
PROVIDERS: PCP Nurse Practitioner Primary Care; Visit Provider Physical Medicine & Rehabilitation
DX: R20.0 Anesthesia of skin (principal)
CPT/HCPCS: 95886; 95911

== ENCOUNTER → 2023-03-20 13:34 | Outpatient (BNV) | payer MEDICAID, SELFPAY | PROVIDERS: PCP Nurse Practitioner Primary Care; Visit Provider Physical Medicine & Rehabilitation | DX: R20.2 Paresthesia of skin (principal) | CPT/HCPCS: 95886; 95911 ==

== ENCOUNTER 2023-10-14 09:18 | Emergency (ER) | payer MEDICAID, SELFPAY ==
[2023-10-14 09:37] VITALS: BP 132/79; PULSE 84; RESP 16; TEMP 36.9; O2SAT 98; BMI 49.1
--- NOTE | 2023-10-14 09:41 | ECG_ITS ---
Test Reason : syncope Blood Pressure : / mmHG Vent. Rate : 083 BPM Atrial Rate : 083 BPM P-R Int : 152 ms QRS Dur : 080 ms QT Int : 356 ms P-R-T Axes : 019 -04 002 degrees QTc Int : 418 ms Normal sinus rhythm Minimal voltage criteria for LVH, may be normal variant ( R in aVL ) Inferior infarct , age undetermined Abnormal ECG No previous ECGs available Referred By: Generic ED Physician Electronically Signed By:Aric Tyler
[2023-10-14 09:56] LABS: MANUAL DIFF FLAG NO
[2023-10-14 09:57] LABS: Basophils Percent Auto 0.7 % (0-2); Eosinophils Absolute Auto 0.3 X10*3/uL (0.0-0.4); Eosinophils Percent Auto 5.6 % (0-4); Hemoglobin 13.2 g/dl (14.0-18.0); Imm Gran Abs Auto 0.03 X10*3/uL (0.00-0.03); Imm Gran Pct Auto 0.5 % (0.0-0.4); Lymphocytes Absolute Auto 1.2 X10*3/uL (1.2-4.9); Lymphocytes Percent Auto 19.7 % (20-40); Mean Corpuscular HGB Conc 32.2 g/dl (31.0-36.0); Mean Corpuscular Hemoglobin 26.7 pg (27.0-33.0); Mean Corpuscular Volume 82.8 fL (80.0-98.0); Mean Platelet Volume 9.3 fL (9.4-12.4); Monocytes Absolute Auto 0.4 X10*3/uL (0.1-1.2); Monocytes Percent Auto 5.9 % (2-11); Neutrophils Percent Auto 67.6 % (45-73); Platelet Count 227 X10*3/uL (160-400); Red Blood Count 4.95 X10*6/uL (4.60-5.80); Red Cell Distribution Width 13.5 % (11.0-16.0); White Blood Count 5.9 X10*3/uL (4.8-10.8)
[2023-10-14 10:13] LABS: IDNOW Serial# 58CA691E; Strep A Nucleic Acid Negative (Negative)
[2023-10-14 10:15] LABS: COVID-19 Test Negative (Negative); IDNOW Serial# 08D9AD1C
[2023-10-14 10:16] LABS: Anion Gap 15 (12-20); Blood Urea Nitrogen 9 mg/dL (9-16); Calcium 8.9 mg/dL (8.4-10.2); Carbon Dioxide 25 mmol/L (22-29); Chloride 106 mmol/L (96-108); Creatinine Clr Calc Pharmacy 197.2; Estimated Glomerular Filt Rate > 60; Glucose Random 111 mg/dL (60-115); Potassium 4.5 mmol/L (3.3-5.1); Sodium 141 mmol/L (135-145)
[2023-10-14 10:16] LABS: IDNOW Serial# 152EDE1D; Influenza A Negative (Negative); Influenza B2 Negative (Negative)
--- NOTE | 2023-10-14 10:33 | ED.GENADULT ---
HPI - General Adult General Chief complaint: General Medical Stated complaint: Sore throat, dizziness Time Seen by Provider: 10/14/23 09:47 Source: patient Mode of arrival: ambulatory Limitations: no limitations History of Present Illness ED Provider: Greg Helm PA-C HPI narrative: 27 yo male with no significant PMH presents to ED with complaints of sore throat, painful swallowing, general malaise, and syncopal episode. Patient states he developed sharp and cutting pain in throat on Friday. He describes associated congestion, facial pressure, and head fullness. He states his body feels weak and tired. He has been feeling lightheaded and reports syncopal episode yesterday while cooking. He describes he began to feel very hot before he fell. He denies any injury or trauma to head. He is unsure if he lost consciousness. He denies headaches, changes in vision, chest pain, and vomiting. He endorses subjective fevers, nausea, and LUQ abdominal pain. Additionally, on Friday he noted bright red blood on toilet tissue and in bowl. He reports 2 episodes on Friday and 1 episode on Friday. He denies sick contacts. MD complaint: Sore throat, general malaise Onset (ago): day(s) Associated symptoms: diaphoresis, fever/chills, malaise, nausea/vomiting, syncope and weakness Related Data Previous Rx's ?Medication ?Instructions ?Recorded naproxen 500 mg tablet 500 mg PO BID PRN pain #20 tabs 10/17/20 valacyclovir 1 gram tablet 1,000 mg PO TID #21 tabs 10/17/20 (Valtrex) ibuprofen 600 mg tablet 600 mg PO Q6H PRN pain #30 tabs 03/30/21 Allergies Allergy/AdvReac Type Severity Reaction Status Date / Time Penicillins [PENICILLINS] Allergy Intermediate RASH Verified 10/14/23 09:40 amoxicillin [AMOXICILLIN] Allergy Unknown HIVES Verified 10/14/23 09:40 Review of Systems Review of Systems: Yes all other systems are reviewed and are negative [facility] Social History Social History Advance Directives: No Advance Directives Information Provided: Yes Current occupational status: unemployed 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 Oriented X3. Ill-appearing, but in no acute distress. Head: normocephalic, atraumatic. Eyes: Pupils equal, round and reactive to light. No conjunctival pallor. ENT: Pharynx normal. No tonsillar swelling or exudate. Neck: Normal inspection. Neck supple. Tenderness to palpation of submandibular lymph nodes. CVS: Normal heart rate and rhythm. Pulses normal. Respiratory: No respiratory distress. Breath sounds normal. Abdomen: Soft. LUQ tenderness to palpation. +BS x4 Skin: Skin warm and dry. Normal skin turgor. No rashes. Extremities: No lower extremity edema. No joint swelling. Neuro/psych: Oriented X 3. No motor deficit. No sensory deficit. CN II-XII intact. Normal speech and cognition. Medical Decision Making Medical Decision Making [facility] Narrative: 27 yo male with no significant PMH presents to ED with complaints of sore throat, painful swallowing, general malaise, and syncopal episode. HPI and physical exam as noted above. EKG showed no ischemic change. Laboratory results are not indicative of anemia. ALT mildy elevated, otherwise LFTs wnl. Viral serology negative for COVID-19, influenza, and strep pyogenes. Monospot test negative. Symptoms likely due to viral URI. Syncopal episode likely vasovagal in the setting of illness and excessive heat. At this time patient is stable for discharge home with supportive care. Stable for discharge. Differential Diagnosis Differential Diagnoses: The differential diagnosis associated with the presentation includes Viral upper respiratory infection, infectious mononucleosis, streptococcal pharyngitis, COVID-19, influenza Lab Data [facility] Lab Attestation statement: I reviewed the patient's lab results. No leukocytosis, normal renal function, no major metabolic derangement 10/14/23 09:52 10/14/23 09:51 Labs: Lab Results 10/14/23 10/14/23 10/14/23 Range/Units 09:46 09:48 09:51 WBC (4.8-10.8) X10*3/uL RBC (4.60-5.80) X10*6/uL Hgb (14.0-18.0) g/dl Hct (42.0-52.0) % MCV (80.0-98.0) fL MCH (27.0-33.0) pg MCHC (31.0-36.0) g/dl RDW (11.0-16.0) % Plt Count (160-400) X10*3/uL MPV (9.4-12.4) fL Immature Gran % (Auto) (0.0-0.4) % Neut % (Auto) (45-73) % Lymph % (Auto) (20-40) % Billings % (Auto) (2-11) % Eos % (Auto) (0-4) % Baso % (Auto) (0-2) % Lymph # (Auto) (1.2-4.9) X10*3/uL Billings # (Auto) (0.1-1.2) X10*3/uL Eos # (Auto) (0.0-0.4) X10*3/uL Baso # (Auto) (0.0-0.2) X10*3/uL Abs Immat Gran (auto) (0.00-0.03) X10*3/uL Absolute Neuts (auto) (2.0-8.3) x10*3/uL Absolute Nucleated RBC (0.0-0.012) X10*3/uL Nucleated RBC % (auto) (0.0-0.2) /100WBC Sodium 141 (135-145) mmol/L Potassium 4.5 (3.3-5.1) mmol/L Chloride 106 (96-108) mmol/L Carbon Dioxide 25 (22-29) mmol/L Anion Gap 15 (12-20) BUN 9 (9-16) mg/dL Creatinine 0.80 (0.5-1.4) mg/dL Estim Creat Clear Calc 197.2 Estimated GFR > 60 Random Glucose 111 (60-115) mg/dL Calcium 8.9 (8.4-10.2) mg/dL Total Bilirubin 0.4 (0.0-1.0) mg/dL Direct Bilirubin 0.1 (0.0-0.5) mg/dL AST 22 (5-37) U/L ALT 44 H (0-40) U/L Alkaline Phosphatase 103 (39-117) U/L Total Protein 7.1 (6.5-8.0) g/dL Albumin 4.0 (3.5-5.0) g/dL COVID-19 ([facility]OCASTA) Negative (Negative) COVID-19 Clin Com See Note Monoscreen (Negative) Influenza Type A (ESTHER) Negative (Negative) Influenza Type B (ESTHER) Negative (Negative) Influenza A & B Note See Note S. pyogenes GrpA ESTHER Negative (Negative) 10/14/23 10/14/23 Range/Units 09:52 12:20 WBC 5.9 (4.8-10.8) X10*3/uL RBC 4.95 (4.60-5.80) X10*6/uL Hgb 13.2 L (14.0-18.0) g/dl Hct 41.0 L (42.0-52.0) % MCV 82.8 (80.0-98.0) fL MCH 26.7 L (27.0-33.0) pg MCHC 32.2 (31.0-36.0) g/dl RDW 13.5 (11.0-16.0) % Plt Count 227 (160-400) X10*3/uL MPV 9.3 L (9.4-12.4) fL Immature Gran % (Auto) 0.5 H (0.0-0.4) % Neut % (Auto) 67.6 (45-73) % Lymph % (Auto) 19.7 L (20-40) % Billings % (Auto) 5.9 (2-11) % Eos % (Auto) 5.6 H (0-4) % Baso % (Auto) 0.7 (0-2) % Lymph # (Auto) 1.2 (1.2-4.9) X10*3/uL Billings # (Auto) 0.4 (0.1-1.2) X10*3/uL Eos # (Auto) 0.3 (0.0-0.4) X10*3/uL Baso # (Auto) 0.0 (0.0-0.2) X10*3/uL Abs Immat Gran (auto) 0.03 (0.00-0.03) X10*3/uL Absolute Neuts (auto) 4.0 (2.0-8.3) x10*3/uL Absolute Nucleated RBC 0.000 (0.0-0.012) X10*3/uL Nucleated RBC % (auto) 0.0 (0.0-0.2) /100WBC Sodium (135-145) mmol/L Potassium (3.3-5.1) mmol/L Chloride (96-108) mmol/L Carbon Dioxide (22-29) mmol/L Anion Gap (12-20) BUN (9-16) mg/dL Creatinine (0.5-1.4) mg/dL Estim Creat Clear Calc Estimated GFR Random Glucose (60-115) mg/dL Calcium (8.4-10.2) mg/dL Total Bilirubin (0.0-1.0) mg/dL Direct Bilirubin (0.0-0.5) mg/dL AST (5-37) U/L ALT (0-40) U/L Alkaline Phosphatase (39-117) U/L Total Protein (6.5-8.0) g/dL Albumin (3.5-5.0) g/dL COVID-19 (YOCASTA) (Negative) COVID-19 Clin Com Monoscreen Negative (Negative) Influenza Type A (ESTHER) (Negative) Influenza Type B (ESTHER) (Negative) Influenza A & B Note S. pyogenes GrpA ESTHER (Negative) Independent Interpretation I performed an independent interpretation of an: EKG Interpretation: Normal sinus rhythm. Ventricular rate 83 BPM. SD interval 152 ms. QRS duration 80 ms. External Record Review External record reviewed: Inpatient record, Office record and Outpatient record Tests considered The following testing was considered but not selected: chest x-ray considered, lungs are clear with normal oxygenation, doubt pneumonia Prescription Management I considered prescription management with: Pain Medication and Antibiotic Critical Care Time Critical Care Time Critical Care Time: No Discharge Plan Discharge Clinical Impression: Acute viral syndrome Patient Disposition: Home, Self-Care Instructions: Viral Syndrome (ED) Additional Instructions: You tested negative for COVID, flu, RSV. You tested negative for strep throat and mononucleosis as well. Your EKG and lab workup was unremarkable. Your symptoms most likely due to a viral process. Treatment is rest and supportive care. Take the prescribed anti-inflammatory medication as needed for pain, headache, fevers. Drink plenty of fluids. Take [id number] cold and flu medications as needed for your symptoms. Follow-up with your doctor. If you develop new or worsening symptoms call 911 or come back to the ER for further evaluation. Prescriptions: No Action valacyclovir [Valtrex] 1 gram tablet 1,000 mg PO TID Qty: 21 0RF naproxen 500 mg tablet 500 mg PO BID PRN (Reason: pain) Qty: 20 0RF ibuprofen 600 mg tablet 600 mg PO Q6H PRN (Reason: pain) Qty: 30 0RF Referrals: Trang Soliz, [facility] [Primary Care Provider] - Stand Alone Forms: Work/School Release Interventions: ED Discharge Assessment Last Done: 10/14/23 13:42 Discharge Date/Time: 10/14/23 13:43 Print Language: Portuguese
[2023-10-14 10:54] VITALS: BP 131/83; BP 135/93; PULSE 80; PULSE 84
[2023-10-14 10:55] VITALS: BP 148/96; PULSE 83
[2023-10-14 11:20] LABS: Alanine Aminotransferase 44 U/L (0-40); Alkaline Phosphatase 103 U/L (39-117); Aspartate Amino Transferase 22 U/L (5-37); Bilirubin Direct 0.1 mg/dL (0.0-0.5); Bilirubin Total 0.4 mg/dL (0.0-1.0); Total Protein 7.1 g/dL (6.5-8.0)
[2023-10-14 12:59] LABS: Monotest Negative (Negative)
[2023-10-14 13:42] VITALS: BP 148/96; PULSE 76; RESP 16; TEMP 36.3; O2SAT 97
== END 2023-10-14 13:43 | disposition home or self-care (01) ==
PROVIDERS: Physician Assistant; Emergency Provider Emergency Medicine; PCP Nurse Practitioner Primary Care
DX: B34.9 Viral infection, unspecified (principal); Z11.52 Encounter for screening for COVID-19
CPT/HCPCS: 36415; 80048; 80076; 85025; 86308; 87502; 87635; 87651; 93005; 99283

== ENCOUNTER → 2023-10-14 09:41 | Outpatient (BNV) | payer MEDICAID, SELFPAY | PROVIDERS: Emergency Provider Emergency Medicine; PCP Nurse Practitioner Primary Care; Visit Provider Internal Medicine Cardiovascular Disease | DX: R55 Syncope and collapse (principal) | CPT/HCPCS: 93010 ==

== ENCOUNTER 2024-09-08 21:28 | Emergency (ER) | payer OTHER, SELFPAY ==
--- NOTE | ~2024-09-08 | XR_ITS ---
CLINICAL HISTORY: trauma 3 view left ankle Comparison: None Findings: No acute fractures. Ankle mortise intact. No significant loss of joint space, osteophytes, or erosions. No ankle effusion. No radiopaque foreign body. IMPRESSION: 1. No acute findings. This document has been electronically signed by: Tom Snow MD, PHD on 09/09/2024 00:52:04
--- NOTE | ~2024-09-08 | XR_ITS ---
CLINICAL HISTORY: trauma 3 view left foot Comparison: None Findings: Bones intact. No dislocations. No significant loss of joint space, osteophytes, or erosions. No ankle effusion. No radiopaque foreign body. IMPRESSION: 1. No acute findings. This document has been electronically signed by: Tom Snow MD, PHD on 09/09/2024 00:53:49
[2024-09-08 21:48] VITALS: BP 134/81; PULSE 81; RESP 18; TEMP 36.6; O2SAT 96; BMI 47.9
[2024-09-09 00:38] VITALS: BP 135/69; PULSE 72; RESP 20; TEMP 36.6; O2SAT 97
--- NOTE | 2024-09-09 01:09 | ED_ITS ---
HPI - General Adult General Chief complaint: Extremity Injury, Lower Stated complaint: L ankle pain, work injury Time Seen by Provider: 09/09/24 00:07 Source: patient Limitations: no limitations History of Present Illness ED Provider: Dannielle Freeman PA-C HPI narrative: 28-year-old male presents with left ankle pain. Patient states he was at work, he stepped and rolled his ankle while carrying a heavy object. Now with medial foot and ankle pain. Related Data Previous Rx's ?Medication ?Instructions ?Recorded naproxen 500 mg tablet 500 mg PO BID PRN pain #20 tabs 10/17/20 valacyclovir 1 gram tablet 1,000 mg PO TID #21 tabs 10/17/20 (Valtrex) ibuprofen 600 mg tablet 600 mg PO Q6H PRN pain #30 tabs 03/30/21 Allergies Allergy/AdvReac Type Severity Reaction Status Date / Time Penicillins [PENICILLINS] Allergy Intermediate RASH Verified 09/08/24 21:50 amoxicillin [AMOXICILLIN] Allergy Unknown HIVES Verified 09/08/24 21:50 Review of Systems Review of Systems: Yes all other systems are reviewed and are negative Constitutional: Constitutional: Denies fatigue and Denies fever(s) Cardiovascular: Cardiovascular: Denies chest pain Gastrointestinal: Gastrointestinal: Denies abdominal pain, Denies nausea and Denies vomiting Musculoskeletal: Musculoskeletal: Reports arthralgias and Reports joint swelling Endocrine: Endocrine: Denies fatigue PMFSH Past Medical History Attestation statement: The following information was validated with the patient. 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 Physical Exam ED Vital Signs: Vital Signs - 24 hr 09/08/24 21:48 09/09/24 00:38 Temperature 97.9 F 98 F Pulse Rate 81 72 Respiratory Rate 18 20 Blood Pressure 134/81 135/69 Pulse Oximetry 96 97 Oxygen Delivery Method Room Air Room Air BMI result Body Mass Index 47.9 Const Other: Alert well-appearing Orientation/consciousness: patient oriented x3 Resp Effort & Inspection: normal respiratory effort Cardio Other: Normal peripheral perfusion Skin Other: Warm dry no rash Neuro General: patient oriented x3, gait normal, no focal motor deficits and CN's II- XI intact bilaterally Extrem Other: Patient able to flex and extend from the ankle although minimal secondary to pain, some degree of swelling which is minimal, no deformity over the foot Psych Other: Cooperative Medical Decision Making Medical Decision Making MDM Narrative: 28-year-old male presents with left ankle pain. Patient states he was at work, he stepped and rolled his ankle while carrying a heavy object. Now with medial foot and ankle pain. No chronic issues History: Per patient I have considered the following differential diagnoses: Sprain, fracture, dislocation Plan: X-rays obtained from the foot and ankle, no fracture no dislocation he has a sprain. We will place in a walking boot and some crutches. I have independently reviewed the following tests: X-ray left ankle: Findings: No acute fractures. Ankle mortise intact. No significant loss of joint space, osteophytes, or erosions. No ankle effusion. No radiopaque foreign body. IMPRESSION: 1. No acute findings. IMPRESSION: 1. No acute findings. X-ray left foot:Findings: Bones intact. No dislocations. No significant loss of joint space, osteophytes, or erosions. No ankle effusion. No radiopaque foreign body. IMPRESSION: 1. No acute findings. Discharge Plan Discharge Clinical Impression: Left ankle sprain Patient Disposition: Home, Self-Care Instructions: R.I.C.E. Treatment (ED), Sprain (ED) Additional Instructions: X-rays of the foot and ankle were negative for fracture or dislocation, you have a sprain. See home care instructions. Use the walking boot and crutches as needed, ambulate as tolerated. Follow up with primary care provider as needed. Prescriptions: No Action valacyclovir [Valtrex] 1 gram tablet 1,000 mg PO TID Qty: 21 0RF naproxen 500 mg tablet 500 mg PO BID PRN (Reason: pain) Qty: 20 0RF ibuprofen 600 mg tablet 600 mg PO Q6H PRN (Reason: pain) Qty: 30 0RF Stand Alone Forms: Work/School Release Print Language: Samoan
[2024-09-09 01:39] VITALS: BP 134/74; PULSE 82; RESP 16; TEMP 36.7; O2SAT 98
[2024-09-09 01:52] VITALS: BP 134/74; PULSE 82; RESP 16; TEMP 36.7; O2SAT 98
== END 2024-09-09 01:53 | disposition home or self-care (01) ==
PROVIDERS: Emergency Provider Emergency Medicine; PCP Nurse Practitioner Primary Care
DX: S93.402A Sprain of unspecified ligament of left ankle, initial encounter (principal); X50.1XXA Overexertion from prolonged static or awkward postures, initial encounter; M25.572 Pain in left ankle and joints of left foot; Y93.89 Activity, other specified; Y92.59 Other trade areas as the place of occurrence of the external cause; Y99.0 Civilian activity done for income or pay
CPT/HCPCS: 73610; 73630; 99283; 99284

== ENCOUNTER → 2024-09-09 00:09 | Outpatient (BNV) | payer SELFPAY | PROVIDERS: PCP Nurse Practitioner Primary Care; Visit Provider General Practice | DX: S99.912A Unspecified injury of left ankle, initial encounter (principal); S99.922A Unspecified injury of left foot, initial encounter | CPT/HCPCS: 73610; 73630 ==